=== PATIENT | female | born 1975 | race Caucasian/White ===

== ENCOUNTER 2018-09-04 08:42 | Outpatient (CLI) | payer BC ==
--- NOTE | 2018-09-04 11:07 | ULT ---
TRANSABDOMINAL AND TRANSVAGINAL PELVIC ULTRASOUND: INDICATIONS: Enlarged uterus. Irregular menstrual periods. TECHNIQUE: Patterson-scale, color Doppler, and spectral Doppler images were obtained of the pelvis. FINDINGS: The uterus measures 7.6 x 5.2 x 4.5 cm, with an endometrial stripe of 8.2 mm. This is within normal limits for a premenopausal female. No free fluid is identified. Small nabothian cysts are seen with in the cervix. The right ovary measures 4.1 x 3.0 x 2.3 cm. The left ovary measures 2.8 x 3.1 x 2.2 cm. There is n ormal flow to both ovaries. IMPRESSION: 1. Endometrial stripe of 8.2 mm is within normal limits for a premenopausal female. 2. No additional sonographic abnormality. 3. Small nabothian cysts seen within the cervix. POS: [facility]
== END 2018-09-04 08:43 | disposition home or self-care (01) ==
LOC: SCSULT 08:42
PROVIDERS: ATTEND Physician Assistant
DX: N85.2 Hypertrophy of uterus (principal); N88.8 Other specified noninflammatory disorders of cervix uteri
CPT/HCPCS: 76856